=== PATIENT | male | born 1945 | race Caucasian/White ===

== ENCOUNTER 2023-01-15 18:10 | Emergency (ER) | payer OTHER, MEDICAID ==
[~2023-01-15] VITALS: Ht 172.7 cm; Wt 91.0 kg
[~2023-01-15 18:10] MED LIST: ACET-2708 MT; ATOR20TA65 PO; CARB-32 MT; DUTA1CPM4 MT; FURO-151 PO; LEVO500T2 PO; LISI2.5T47 PO; SERT-422 PO
[2023-01-15 18:12] VITALS: BP 0/0
== END 2023-01-15 19:40 ==
LOC: ER 18:10
DX: I46.9 Cardiac arrest, cause unspecified (principal); E11.9 Type 2 diabetes mellitus without complications; I25.2 Old myocardial infarction; Z79.899 Other long term (current) drug therapy
CPT/HCPCS: 99285